=== PATIENT | male | born 1990 | race American Indian/Alaskan Native ===

== ENCOUNTER 2020-03-09 00:49 | Emergency (ER) | payer OTHER ==
[2020-03-09 01:20] VITALS: BP 124/83
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
== END 2020-03-09 03:10 | disposition home or self-care (01) ==
LOC: ED 00:49
DX: M79.18 Myalgia, other site (principal); R07.89 Other chest pain; V89.2XXA Person injured in unspecified motor-vehicle accident, traffic, initial encounter; Y93.89 Activity, other specified; Y92.410 Unspecified street and highway as the place of occurrence of the external cause; Y99.8 Other external cause status
CPT/HCPCS: 71111; 99283